=== PATIENT | female | born 1960 | race Caucasian/White ===

== ENCOUNTER 2020-08-29 15:37 | Inpatient (IN) | payer MEDICARE, MEDICAID, SELFPAY ==
[2020-08-29] VITALS (20 sets, daily range): BP systolic 95–143; BP diastolic 65–86; PULSE 100–140; RESP 19–34; TEMP 36.6–38.2; O2SAT 87–97; BMI 68.1
--- NOTE | ~2020-08-29 | XR_ITS ---
EXAMINATION: XR chest 1V portable EXAM DATE: 08/29/2020 16:08 INDICATION: sob covid +,HX CHF,COPD . TECHNIQUE: Portable AP frontal chest x-ray was obtained. Comparison is made to prior examination from 10/09/2016. FINDINGS: Scattered bilateral ill-defined groundglass opacity suspected, new compared to prior study. Given history provided, could be regions of early acute lung injury from SARS-CoV-2. Could also be p ulmonary edema given the cardiomegaly and pulmonary vascular congestion. There is no pneumothorax nir pected. There are no pleural effusions There are bony degenerative changes. IMPRESSION: Scattered groundglass opacities likely either COVID-19 or pulmonary edema. Cardiomegaly, congestion. Reviewed, dictated and finalized at location B. MENTAL IRONWORKER
--- NOTE | ~2020-08-29 | XR_ITS ---
EXAMINATION: XR chest 1V portable EXAM DATE: 09/03/2020 06:13 INDICATION: CHF. Pneumonia. TECHNIQUE: Portable AP frontal chest x-ray was obtained. Comparison is made to prior examination from 08/29/2020. FINDINGS: The cardiac silhouette is enlarged. There is pulmonary vascular congestion. No confluent co nsolidation, pneumothorax or pleural effusion suspected. There are no osseous abnormalities identifie d. IMPRESSION: Cardiomegaly, pulmonary vascular congestion. Reviewed, dictated and finalized at location A. S REPRESENTATIVE TRAINEE
--- NOTE | 2020-08-29 15:42 | ECG_ITS ---
Measurements Intervals [place] Rate: 142 P: UT: 0 QRS: -3 QRSD: 108 T: 139 QT: 324 QTc: 499 Interpretive Statements ATRIAL FIBRILLATION WITH RAPID VENTRICULAR RESPONSE VENTRICULAR PREMATURE COMPLEXES BORDERLINE R WAVE PROGRESSION, ANTERIOR LEADS BORDERLINE ST-T WAVE ABNORMALITY- HIGH LATERAL LEADS BASELINE ARTIFACT- III, AVL, AVF, V1-V3 ABNORMAL ECG Electronically Signed On 08-29-2020 18:48:27 CREATIVE INTERN by Rony Soliman D.O.
--- NOTE | 2020-08-29 15:43 | ED.GENADULT ---
HPI - General Adult General Chief complaint: Shortness of Breath/Dyspnea Stated complaint: SOB/COVID + Time Seen by Provider: 08/29/20 15:40 Source: patient Mode of arrival: EMS Limitations: no limitations History of Present Illness HPI narrative: Patient presents with chief complaint of shortness of breath while at the detention. Patient was diagnosed with COVID on 08/23/2020. Patient states that she is normally on 4-5 L of oxygen via nasal cannula at home due to breathing issues for which diagnoses are unknown to her. Patient states that she was having trouble catching her breath at the detention so they called EMS. They did not try adjusting her nasal cannula or oxygen. Patient has chronic atrial fibrillation. Patient states she has not been drinking very much as the water tastes nasty. Patient denies fever, chills, vomiting, diarrhea. Patient is resting comfortably at this time. Related Data Home Medications Medication Instructions Recorded Confirmed amlodipine 08/29/20 atorvastatin 08/29/20 buspirone mg 08/29/20 carvedilol 08/29/20 diclofenac sodium TOPICAL 08/29/20 empagliflozin [Jardiance] mg 08/29/20 08/29/20 fluconazole 08/29/20 gabapentin 08/29/20 insulin detemir U-100 [Levemir SUBCUT 08/29/20 U-100 Insulin] losartan 08/29/20 metformin mg 08/29/20 trazodone 08/29/20 Allergies Allergy/AdvReac Type Severity Reaction Status Date / Time sulfamethoxazole Allergy Unknown Rash Verified 08/29/20 15:47 trimethoprim Allergy Unknown Rash Verified 08/29/20 15:47 PIPERACILLIN SODIUM Allergy Unknown Rash Uncoded 08/29/20 15:47 TAZOBACTAM SODIUM Allergy Unknown Rash Uncoded 08/29/20 15:47 Review of Systems Review of Systems: Narrative: CONSTITUTIONAL: Denies fever, chills, or sweats. EYES: Denies visual changes, redness, or discharge. ENT: Denies rhinorrhea, congestion, sore throat, or otalgia. CARDIOVASCULAR: Denies chest pain, palpitations, or edema. RESPIRATORY: Reports dyspnea denies cough GASTROINTESTINAL: Denies abdominal pain, nausea, vomiting, or diarrhea. GENITOURINARY: Denies dysuria or hematuria. SKIN: Denies rash or itching. MUSCULOSKELETAL: Denies back pain, joint pain, or myalgia. NEUROLOGIC: Denies headache, numbness, dizziness, or weakness. PSYCHIATRIC: Denies anxiety or depression. [facility] Past Medical History Medical History (Updated 08/29/20 @ 16:08 by Horacio Maurer PA-C) Congestive heart failure COPD (chronic obstructive pulmonary disease) Depression GERD (gastroesophageal reflux disease) Hypercholesterolemia Obesity hypoventilation syndrome Osteoarthritis Panniculitis Surgical History Surgical History (Updated 08/29/20 @ 16:08 by Horacio Maurer PA-C) H/O umbilical hernia repair History of carpal tunnel release Hx of cholecystectomy Exam Narrative: Exam Narrative: GENERAL: Well-appearing, well-nourished, and in no acute distress. Patient sitting in bed watching TV with nasal cannula in place. Patient is morbidly obese HEAD: Normocephalic, atraumatic. EYES: PERRLA and EOMI. ENT: Nares clear, no rhinorrhea or epistaxis. Mucous membranes moist. Bilateral TMs pearly linn nonbulging CHEST: Clear to auscultation.They are not loudly audible wheezes or rhonchi. Patient able to speak in complete sentences without being short of breath. Patient is denying chest pain. No tachypnea. HEART: Irregular regular rate and rhythm- A. fib. EXTREMITIES: Normal range of motion. No edema. SKIN: Warm, dry, no rash. NEURO: No focal deficits. Alert and oriented x3. PSYCH: Normal mood and affect. Course Course Emergency Course: Patient is encouraged to take a deep breath her oxygenation is between 95-96 on room air on her normal 5 L via nasal cannula. Patient is not tachypneic. Patient's heart rate fluctuates between 129 and 160 so she has been started on a Cardizem drip at 5 an hour. Her blood pressure is holding at 128/88. Blood rate continues to be elevated so the Car
[2020-08-29 16:09] LABS: Hematocrit 27.6 % (37.0-47.0); Hemoglobin 8.2 g/dL (12.0-15.0); Mean Corpuscular HGB Conc 29.7 g/dl (32-36); Mean Corpuscular Hemoglobin 25.6 pg (26-34); Mean Corpuscular Volume 86.3 fl (80-100); Mean Platelet Volume 10.2 fl (7.4-10.4); Platelet Count Result 211 k/mm3 (150-375); Red Cell Distribution Width 18.3 % (11.5-14.5); White Blood Count 6.6 K/mm3 (4.5-10.0)
[2020-08-29 16:21] LABS: Alanine Aminotransferase 12 U/L (4-35); Albumin Level 3.6 g/dL (3.5-5.1); Alkaline Phosphatase 65 U/L (38-126); Anion Gap 13 mmol/L (8-16); Aspartate Amino Transferase 16 U/L (14-36); Bilirubin,Total 0.2 mg/dL (0.2-1.3); Blood Urea Nitrogen 64 mg/dL (7-17); Calcium 8.7 mg/dL (8.4-10.2); Carbon Dioxide 36 mmol/L (22-30); Chloride 90 mmol/L (98-107); Estimated CRCL calculation 58 ml/min; Estimated Glomerular Filt Rate 36; Glucose 182 mg/dL (65-105); Potassium 3.6 mmol/L (3.4-5.0); Sodium 139 mmol/L (137-145)
[2020-08-29 16:32] LABS: Anisocytosis 2+ (NORMAL); Band Neutrophils Percent 16 % (0-6); Hypochromasia 1+ (NORMAL); Lymphocytes Absolute Manual 0.46 K/mm3 (1.1-4.5); Monocytes Absolute Manual 0.26 K/mm3 (0.1-0.90); Monocytes Percent Manual 4 % (3-9); Neutrophils Absolute Manual 5.87 K/mm3 (1.7-7.2); Neutrophils Percent Manual 73 % (46-73); Platelet Estimate Adequate (Adequate); Total Cells Counted 100
[2020-08-29 16:36] LABS: D Dimer 2.51 ug/mL (<0.48)
[2020-08-29] MEDS: dilTIAZem HCl INJ 25 MG/5 ML VIAL 15 MG IV PUSH ×2 (16:46→18:21)
[2020-08-29 16:55] LABS: NT Pro B Type Natriuretic Pept 5480 PG/ML (5-100)
[2020-08-29] MEDS: LORazepam INJ (*CRX) 2 MG/ML VIAL 0.5 MG IV PUSH (17:11)
--- NOTE | 2020-08-29 17:20 | PC.NURSE ---
PT REFUSING TO LIE DOWN FOR HER CT SCAN. DR REYES AND Tiarra VELASCO MADE AWARE.
[2020-08-29] MEDS: ENOXAPARIN 100 MG/ML SYRINGE 170 MG SUB-Q (17:59)
--- NOTE | 2020-08-29 21:47 | PM.IMHP ---
H&P: HPI History of Present Illness Date/Time: 08/29/20 21:47 Chief complaint: COVID, Hypoxia, R/O PE, AFIB RVR Narrative: Melissa Gilman is a 60 year old female Who has a history of paroxysmal atrial fibrillation. Is no longer on any anticoagulation for unknown reasons. The patient also has a history of congestive heart failure as well COPD. The patient is typically on oxygen at 4-5 L of oxygen. The patient complained of shortness of breath while in the alf. She was diagnosed with covid 19 on 08/23/2020. The patient was having difficulty catching her breath so EMS was called. Patient was found to be in AFib with RVR. The patient has not been drinking very much because her taste buds have changed. No fever chills no vomiting or diarrhea. The patient is from [facility]. Patient's H&H was noted to be 8.2 and 27.6. This appears to be her baseline. Creatinine is noted to be 1.5 in her blood glucose 182. Patient was given IV fluids and then started on a Cardizem drip. She was also started on subcu Lovenox. Patient also has obstructive sleep apnea and wears a CPAP machine. Patient was admitted inpatient IMU status but place in ICU since she has covid 19. The patient is a very poor historian has not been able to offer much history. Patient is somnolent. Date of service is 08/29/2020. Review of Systems Review of Systems: All systems reviewed & are unremarkable except as noted in HPI and below Constitutional: Constitutional: Reports as per HPI and Reports no additional constitutional complaints Eyes: Eyes: Reports as per HPI and Reports no additional eye complaints ENT: Reports system reviewed and no additional complaints, except as documented and Reports Normal hearing present Cardiovascular: Cardiovascular: Reports no additional cardiovascular complaints Respiratory: Respiratory: Reports no additional respiratory complaints and Reports no additional respiratory complaints Gastrointestinal: Gastrointestinal: Reports as per HPI and Reports no additional gastrointestinal complaints Musculoskeletal: Musculoskeletal: Reports no additional musculoskeletal complaints Integumentary/Breasts: Skin/Breast: Reports system reviewed and no additional complaints, except as docu and Reports as per HPI Neurologic: Reports system reviewed and no additional complaints, except as documented, Reports as per HPI and Reports Normal hearing present Psychiatric: Psychiatric: Reports no additional psychiatric complaints and Reports as per HPI Endocrine: Endocrine: Reports no additional endocrine complaints Hematologic/Lymphatic: Hematologic/Lymphatic: Reports no additional hematologic/lymphatic complaints Allergic/Immunologic: Allergic/Immunologic: Reports no additional allergic/immunologic complaints [facility] Past Medical History Medical History (Updated 08/29/20 @ 22:13 by Isabell Connors NP) Anemia Atrial fibrillation paroxysmal. Patient is no longer on anticoagulation unsure of why the patient is no longer on anticoagulation. Congestive heart failure Diastolic COPD (chronic obstructive pulmonary disease) Depression Depression with anxiety DM2 (diabetes mellitus, type 2) GERD (gastroesophageal reflux disease) Hypercholesterolemia Hypertension Morbid obesity Obesity hypoventilation syndrome Osteoarthritis Panniculitis Surgical History Surgical History (Updated 08/29/20 @ 21:59 by Isabell Connors NP) H/O umbilical hernia repair History of carpal tunnel release History of section, classical History of endometrial ablation Hx of cholecystectomy Family History Family History (Updated 08/29/20 @ 22:00 by Isabell Connors NP) Father Congestive heart failure Prostate carcinoma Mother Mitral valve prolapse Social History Social History (Updated 08/29/20 @ 22:04 by Isabell Connors NP) Social History: the patient resides at [facility] was noted from her social history in the
[2020-08-29 22:03] LABS: Base Excess ABG 5.8 mEq/l (+/-2.0); Fractional Inspired Oxygen 40 %; HCO3 ABG 32.6 mEq/l (22.0-26.0); Oxygen Content ABG 12.1 %vol (16.0-22.0); Oxygen Saturation ABG 87.8 % (95.0-100.0); Oxyhemoglobin 86.9 % THb (90.0-100.0); PCO2 ABG 59.9 mmHg (35.0-45.0); PO2 ABG 57.3 mmHg (80.0-100.0); PO2 FiO2 Ratio Arterial Blood 1.43 %; Total Hemoglobin 9.9 g/dL (12.0-18.0); pH ABG 7.353 (7.350-7.450)
[2020-08-29 22:05] LABS: Device NASAL CANNULA; Modified Allen's Test Pass; Site Drawn RIGHT RADIAL
[2020-08-29] MEDS: REMDESIVIR 200 MG/NS 250 ML 200 MG/250 ML BAG 250 MG IVPB (23:04)
[2020-08-30] VITALS (24 sets, daily range): BP systolic 119–147; BP diastolic 65–97; PULSE 84–124; RESP 21–25; TEMP 35.6–37.8; O2SAT 94–99
--- NOTE | 2020-08-30 | ECHO_ITS ---
Patient Info Name: Melissa Gilman Age: 60 years : 1960 Gender: Female Ht: 63 in Wt: 384 lbs BSA: 2.91 m2 HR: 83 bpm BP: 129 / 97 mmHg Heart Rhythm: Atrial Fibrillation Technical Quality: Fair Exam Date: 08/30/2020 2:11 PM Exam Location: [facility] Pulmonary Patient Status: Inpatient Admit Date: 08/29/2020 Staff Ordering Physician: Isabell Connors NP Developer Relations Manager: Ron Joseph, OLIVIA, RT Attending Provider: Nestor Harry MD Referring Physician: [facility] ; Exam Type: CA echo doppler color flow Study Info Indications I50.9 - Heart failure, unspecified Complete two-dimensional, color flow and Doppler transthoracic echocardiogram is performed. Summary 1. Complete two-dimensional, color flow and Doppler transthoracic echocardiogram is performed. 2. Left ventricular chamber dimension is normal. 3. Left ventricular systolic function is normal, estimated at 55-60%. 4. There is mildly increased left ventricular wall thickness. 5. The left ventricular diastolic function is abnormal. 6. E/e' 11 is mildly elevated. 7. Probably in atrial fibrillation. 8. Right atrial chamber dimension is mildly enlarged. 9. There is mild to moderate mitral valve regurgitation. 10. There is trace pulmonic regurgitation. 11. Dilated inferior vena cava with <50% collapse upon inspiration consistent with significantly elevated right atrial pressure, 15 mmHg. Left Ventricle E/e' 11 is mildly elevated. Probably in atrial fibrillation. Left ventricular chamber dimension is normal. Left ventricular systolic function is normal, estimated at 55-60%. There is mildly increased left ventricular wall thickness. The left ventricular diastolic function is abnormal. Right Ventricle Right ventricular chamber dimension is not well visualized. Left Atria Left atrial chamber dimension is normal. Right Atria Right atrial chamber dimension is mildly enlarged. Aortic Valve The aortic valve is probable trileaflet. There is no aortic valve stenosis. There is no aortic valve regurgitation. Pulmonic Valve There is trace pulmonic regurgitation. Mitral Valve There is no mitral valve stenosis. There is mild to moderate mitral valve regurgitation. Tricuspid Valve There is no tricuspid valve regurgitation. Pericardium/Pleural There is no pericardial effusion. Inferior Vena Cava Dilated inferior vena cava with <50% collapse upon inspiration consistent with significantly elevated right atrial pressure, 15 mmHg. Aorta The aortic root size at the sinus of Valsalva is normal. Tricuspid Valve Name Value Normal Estimated PAP/RSVP RA Pressure 15 mmHg <=5 Report Signatures
[2020-08-30] MEDS: DEXAMETHASONE SOD PHOS INJ 4 MG/ML VIAL 6 MG IV PUSH ×2 (00:50→21:35)
[2020-08-30 01:39] LABS: Glucose Point of Care 165 (65-105)
[2020-08-30 04:58] LABS: D Dimer 2.34 ug/mL (<0.48)
[2020-08-30 05:04] LABS: Alanine Aminotransferase 8 U/L (4-35); Albumin Level 3.5 g/dL (3.5-5.1); Alkaline Phosphatase 68 U/L (38-126); Anion Gap 8 mmol/L (8-16); Aspartate Amino Transferase 17 U/L (14-36); Bilirubin,Total 0.4 mg/dL (0.2-1.3); Blood Urea Nitrogen 62 mg/dL (7-17); Calcium 8.9 mg/dL (8.4-10.2); Carbon Dioxide 38 mmol/L (22-30); Chloride 92 mmol/L (98-107); Estimated CRCL calculation 72 ml/min; Estimated Glomerular Filt Rate 46; Glucose 207 mg/dL (65-105); Lactate Dehydrogenase 465 U/L (313-618); Magnesium 2.6 mg/dL (1.6-2.3); Potassium 3.7 mmol/L (3.4-5.0); Sodium 138 mmol/L (137-145)
[2020-08-30 05:09] LABS: CRP 20.5 mg/dL (<1.0)
[2020-08-30 05:33] LABS: Basophils Percent Auto 0.4 % (0.2-1.2); Eosinophils Percent Auto 0.2 % (0-4.4); Hematocrit 29.8 % (37.0-47.0); Hemoglobin 8.7 g/dL (12.0-15.0); Immature Granulocyte Absolute 0.43 K/mm3 (0.00-0.031); Immature Granulocyte Percent A 7.6 % (0-0.5); Lymphocytes Absolute Auto 0.54 K/mm3 (0.9-3.2); Lymphocytes Percent Auto 9.5 % (18.3-44.2); Mean Corpuscular HGB Conc 29.2 g/dl (32-36); Mean Corpuscular Volume 85.6 fl (80-100); Mean Platelet Volume 10.2 fl (7.4-10.4); Monocytes Absolute Auto 0.3 K/mm3 (0.1-0.6); Monocytes Percent Auto 5.5 % (2.6-8.5); Neutrophils Absolute Auto 4.4 K/mm3 (1.3-6.7); Neutrophils Percent Auto 76.8 % (45.5-73.1); Platelet Count Result 214 k/mm3 (150-375); Red Blood Count 3.48 M/mm3 (4.2-5.4); Red Cell Distribution Width 18.4 % (11.5-14.5); White Blood Count 5.7 K/mm3 (4.5-10.0)
[2020-08-30 05:58] LABS: Hemoglobin A1C 7.5 % (<5.7)
[2020-08-30] MEDS: ENOXAPARIN 100 MG/ML SYRINGE SUB-Q ×2 (06:17→17:18)
[2020-08-30] MEDS: ENOXAPARIN 80 MG/0.8 ML SYRINGE 75 MG SUB-Q ×2 (06:17→17:18)
[2020-08-30] MEDS: ACETAMINOPHEN 500 MG TABLET PO ×3 (06:18→17:17)
[2020-08-30 06:25] LABS: Thyroid Stimulating Hormone Reflex 0.995 uIU/mL (0.465-4.68)
[2020-08-30 06:54] LABS: Microcytosis 2+ (NORMAL); Platelet Estimate Adequate (Adequate)
[2020-08-30 06:55] LABS: Hypochromasia 2+ (NORMAL)
[2020-08-30] MEDS: POLYSACCHARIDE IRON COMPLEX 150 MG CAPSULE PO ×2 (08:44→17:17)
[2020-08-30] MEDS: GABAPENTIN 300 MG CAPSULE PO ×2 (08:45→17:16)
[2020-08-30] MEDS: ATORVASTATIN 40 MG TABLET PO (08:45)
[2020-08-30] MEDS: FUROSEMIDE INJ 40 MG/4 ML VIAL IV PUSH (08:45)
[2020-08-30] MEDS: busPIRone HCL 2.5 MG TABLET 7.5 MG PO ×2 (08:45→21:35)
[2020-08-30] MEDS: PANTOPRAZOLE 40 MG TABLET PO (08:46)
[2020-08-30 09:26] LABS: Glucose Point of Care 183 (65-105)
[2020-08-30 14:11] LABS: Glucose Point of Care 146 (65-105)
[2020-08-30] MEDS: TOLNAFTATE 1% POWDER 45 GM BTL 1 APPLIC TOPICAL (15:03)
--- NOTE | 2020-08-30 16:20 | PM.IMPN ---
Progress Note: A&P Assessment and Plan (1) COVID-19: Code(s): U07.1 - COVID-19 Status: Acute Assessment and Plan: The patient tested has if on August 23 and is from [facility]. Pt is on bipap in ICU. try to wean off BIPAP. (2) Atrial fibrillation: Code(s): I48.91 - Unspecified atrial fibrillation Status: Chronic Assessment and Plan: Wean offcardizem drip. Patient is currently on a Cardizem drip and is responding to the Cardizem. (3) Acute kidney injury: Code(s): N17.9 - Acute kidney failure, unspecified Status: Acute Assessment and Plan: Will continue to monitor. (4) DM2 (diabetes mellitus, type 2): Code(s): E11.9 - Type 2 diabetes mellitus without complications Status: Chronic Assessment and Plan: Accu-Cheks AC and HS check A1c in the morning. Sliding scale insulin. (5) COPD (chronic obstructive pulmonary disease): Code(s): J44.9 - Chronic obstructive pulmonary disease, unspecified Status: Chronic Assessment and Plan: Patient is on dexamethasone (6) Congestive heart failure: Code(s): I50.9 - Heart failure, unspecified Status: Chronic Assessment and Plan: Lasix. (7) Depression: Code(s): F32.9 - Major depressive disorder, single episode, unspecified Status: Chronic (8) Hypercholesterolemia: Code(s): E78.00 - Pure hypercholesterolemia, unspecified Status: Chronic Assessment and Plan: (9) Obesity hypoventilation syndrome: Code(s): E66.2 - Morbid (severe) obesity with alveolar hypoventilation Status: Chronic Assessment and Plan: I ordered a home titrate BiPAP (10) Hypertension: Code(s): I10 - Essential (primary) hypertension Status: Chronic Assessment and Plan: Patient currently is on a Cardizem drip so hold off on any of her blood pressure medicine at this time. (11) Depression with anxiety: Code(s): F41.8 - Other specified anxiety disorders Status: Chronic Assessment and Plan: Awaiting for verification of home medications. (12) Anemia: Code(s): D64.9 - Anemia, unspecified Status: Chronic Assessment and Plan: Appears to be at her baseline. Subjective Date/time seen: 08/30/20 16:20 Interval history: Mukul is a 60 year old female Who has a history of paroxysmal atrial fibrillation. The patient also has a history of congestive heart failure as well COPD. Pt is in ICU for COVID positive infection. PT is from [facility], admitted yesterday. She is currently stable on BIPAP started on remdesivir. Pt is also weaning off a cardizem drip. Review of Systems Review of Systems: All systems reviewed & are unremarkable except as noted in HPI and below Exam Narrative: Exam Narrative: on BIPAP Const: General: cooperative and comfortable Chest: Chest palpation & inspection: normal inspection of the chest Resp: Effort & Inspection: labored Cardio: Rate: tachycardic Rhythm: abnormal rhythm regularly irregular GI: Inspection: normal to inspection Auscultation: normal bowel sounds Skin: General skin exam: normal color Lesions: no lesions Rashes: no rashes Trauma: no lacerations or abrasions Wounds: no wounds Hair: normal Nails: normal Neuro: General: oriented to person Motor exam (neuro): 5/5 motor strength present throughout Extrem: General: edema bilateral Right upper extremity: normal to inspection and shoulder/upper arm Left upper extremity: normal to inspection and shoulder/upper arm Right lower extremity: normal to inspection and edema Details: pitting and 3+ Left lower extremity: normal to inspection and edema Details: pitting and 3+ Psych: Appearance: grossly normal Mental Status: mental status grossly normal Speech and movement: Slowed speech present (Psych) Affect: Indifferent affect present Attit
[2020-08-30] MEDS: INSULIN ASPART (*BKC) 100 UNITS/ML SUB-Q (17:13)
[2020-08-30 17:25] LABS: Glucose Point of Care 290 (65-105)
[2020-08-30] MEDS: REMDESIVIR 100 MG/NS 250 ML 100 MG/250 ML BAG 250 MG IVPB (21:36)
[2020-08-30 22:01] LABS: Glucose Point of Care 296 (65-105)
[2020-08-31] VITALS (14 sets, daily range): BP systolic 134–157; BP diastolic 69–96; PULSE 50–114; RESP 18–23; TEMP 36.1–36.7; O2SAT 92–99
[2020-08-31] MEDS: ACETAMINOPHEN 500 MG TABLET PO ×5 (00:30→23:14)
[2020-08-31] MEDS: carvediloL 6.25 MG TABLET PO ×2 (06:07→21:40)
[2020-08-31] MEDS: ENOXAPARIN 100 MG/ML SYRINGE SUB-Q ×2 (06:08→17:20)
[2020-08-31] MEDS: ENOXAPARIN 80 MG/0.8 ML SYRINGE 75 MG SUB-Q ×2 (06:09→17:21)
[2020-08-31 06:45] LABS: Alanine Aminotransferase 11 U/L (4-35)
[2020-08-31] MEDS: POLYSACCHARIDE IRON COMPLEX 150 MG CAPSULE PO ×2 (08:07→17:20)
[2020-08-31] MEDS: GABAPENTIN 300 MG CAPSULE PO ×2 (08:07→17:20)
[2020-08-31] MEDS: ATORVASTATIN 40 MG TABLET PO (08:07)
[2020-08-31] MEDS: busPIRone HCL 2.5 MG TABLET 7.5 MG PO ×2 (08:07→17:20)
[2020-08-31] MEDS: PANTOPRAZOLE 40 MG TABLET PO (08:07)
[2020-08-31] MEDS: INSULIN ASPART (*BKC) 100 UNITS/ML SUB-Q ×3 (08:08→17:19)
[2020-08-31] MEDS: FUROSEMIDE INJ 40 MG/4 ML VIAL IV PUSH (08:08)
[2020-08-31] MEDS: TOLNAFTATE 1% POWDER 45 GM BTL 1 APPLIC TOPICAL (08:08)
[2020-08-31] MEDS: LORazepam (*CRX) 0.5 MG TABLET PO ×3 (10:59→23:14)
[2020-08-31 11:35] LABS: Glucose Point of Care 259 (65-105)
--- NOTE | 2020-08-31 12:00 | PC.NURSE ---
Patient transferred to [facility], report given to Erin BEAULIEU and all questions answered. All belongings sent with patient
--- NOTE | 2020-08-31 12:01 | ADMGEN ---
This patient, Melissa Gilman, was admitted to [facility] Surg Room 330-01. Patient/family oriented to hospital policies and general routines including ID bracelet, bed and alarms, visiting hours, pain management, procedures, bathroom and other care routines, personal items, smoking policy, room service/diet, and visiting hours. Information on how to activate the Rapid Response Team has been discussed. Patient/Family are encouraged to report perceived risks to care and to ask questions if they do not understand what they are told or what they should do.
[2020-08-31 12:40] LABS: Glucose Point of Care 242 (65-105)
--- NOTE | 2020-08-31 15:26 | PM.IMPN ---
Progress Note: A&P Assessment and Plan (1) COVID-19: Code(s): U07.1 - COVID-19 Status: Acute Assessment and Plan: The patient tested has if on August 23 and is from [facility]. Pt is on 4 liters of oxygen (2) Atrial fibrillation: Code(s): I48.91 - Unspecified atrial fibrillation Status: Chronic Assessment and Plan: Wean offcardizem drip. Patient is currently on a Cardizem drip and is responding to the Cardizem orally and coreg (3) Acute kidney injury: Code(s): N17.9 - Acute kidney failure, unspecified Status: Acute Assessment and Plan: Will continue to monitor. (4) DM2 (diabetes mellitus, type 2): Code(s): E11.9 - Type 2 diabetes mellitus without complications Status: Chronic Assessment and Plan: Accu-Cheks AC and HS check A1c in the morning. Sliding scale insulin. (5) COPD (chronic obstructive pulmonary disease): Code(s): J44.9 - Chronic obstructive pulmonary disease, unspecified Status: Chronic Assessment and Plan: Patient is on dexamethasone (6) Congestive heart failure: Code(s): I50.9 - Heart failure, unspecified Status: Chronic Assessment and Plan: Lasix. (7) Depression: Code(s): F32.9 - Major depressive disorder, single episode, unspecified Status: Chronic (8) Hypercholesterolemia: Code(s): E78.00 - Pure hypercholesterolemia, unspecified Status: Chronic Assessment and Plan: (9) Obesity hypoventilation syndrome: Code(s): E66.2 - Morbid (severe) obesity with alveolar hypoventilation Status: Chronic Assessment and Plan: I ordered a home titrate CPAP (10) Hypertension: Code(s): I10 - Essential (primary) hypertension Status: Chronic Assessment and Plan: Patient currently is on a Cardizem drip so hold off on any of her blood pressure medicine at this time. (11) Depression with anxiety: Code(s): F41.8 - Other specified anxiety disorders Status: Chronic Assessment and Plan: Awaiting for verification of home medications. (12) Anemia: Code(s): D64.9 - Anemia, unspecified Status: Chronic Assessment and Plan: Appears to be at her baseline. Subjective Date/time seen: 08/31/20 15:26 Interval history: Mukul is a 60 year old female Who has a history of paroxysmal atrial fibrillation. The patient also has a history of congestive heart failure as well COPD. Pt is in ICU for COVID positive infection. PT is from [facility], admitted yesterday. She is stable fortransfer to medical floor. Pt is off the cardizem drip. off bipap now on 4 liters now. Hr still high today, pt having a wet cough, seen in the room Review of Systems Review of Systems: All systems reviewed & are unremarkable except as noted in HPI and below Exam Narrative: Exam Narrative: Morbidly obese, wet cough Const: General: cooperative and no acute distress Nutritional Appearance: obese Orientation/consciousness: oriented to person and lethargic Limitations: altered mental status Chest: Chest palpation & inspection: normal inspection of the chest Cardio: Rate: tachycardic Extrem: Right upper extremity: no edema Objective Data Vital Signs Vital Signs: Vital Signs - 24 hr 08/30/20 16:00 08/30/20 18:00 08/30/20 20:00 Temperature 36.0 C L 36.1 C L Pulse Rate 102 H 104 H 124 H Respiratory Rate 25 H 23 H Blood Pressure 147/81 H 140/73 138/69 Pulse Oximetry 94 96 08/30/20 22:00 08/30/20 22:37 08/30/20 22:38 Temperature Pulse Rate 110 H 92 112 H Respiratory Rate 25 H 25 H Blood Pressure Pulse Oximetry 96 96 08/30/20 23:19 08/31/20 00:00 08/31/20 03:01 Temperature Pulse Rate 88 90 91 Respiratory Rate 23 H 18 Blood Pressure 137/96 H Pulse Oximetry 96 98 08/31/20 03:45 08/31/20 03:53 08/31/20 03:56 Temperatur
[2020-08-31] MEDS: dilTIAZem HCL 60 MG TABLET PO ×2 (17:20→23:14)
[2020-08-31 18:33] LABS: Glucose Point of Care 270 (65-105)
[2020-08-31] MEDS: REMDESIVIR 100 MG/NS 250 ML 100 MG/250 ML BAG 250 MG IVPB (21:40)
[2020-08-31] MEDS: DEXAMETHASONE SOD PHOS INJ 4 MG/ML VIAL 6 MG IV PUSH (21:40)
[2020-08-31 22:14] LABS: Glucose Point of Care 339 (65-105)
[2020-08-31] MEDS: INSULIN ASPART (*BKC) 100 UNITS/ML 6 UNITS SUB-Q (22:39)
--- NOTE | 2020-08-31 23:46 | PC.NURSE ---
Patient transferred from ICU 8 via bed.
[2020-09-01] VITALS (11 sets, daily range): BP systolic 133–165; BP diastolic 76–96; PULSE 74–101; RESP 18–24; TEMP 36.1–36.6; O2SAT 92–98
[2020-09-01] MEDS: dilTIAZem HCL 60 MG TABLET PO ×4 (05:51→23:37)
[2020-09-01] MEDS: LORazepam (*CRX) 0.5 MG TABLET PO (05:51)
[2020-09-01] MEDS: ENOXAPARIN 80 MG/0.8 ML SYRINGE 75 MG SUB-Q ×2 (05:51→17:46)
[2020-09-01] MEDS: ACETAMINOPHEN 500 MG TABLET PO ×4 (05:51→23:37)
[2020-09-01] MEDS: ENOXAPARIN 100 MG/ML SYRINGE SUB-Q ×2 (05:52→17:47)
[2020-09-01 06:36] LABS: Basophils Percent Auto 0.5 % (0.2-1.2); Hematocrit 32.3 % (37.0-47.0); Hemoglobin 9.2 g/dL (12.0-15.0); Immature Granulocyte Absolute 0.94 K/mm3 (0.00-0.031); Immature Granulocyte Percent A 15.2 % (0-0.5); Lymphocytes Absolute Auto 0.82 K/mm3 (0.9-3.2); Lymphocytes Percent Auto 13.2 % (18.3-44.2); Mean Corpuscular HGB Conc 28.5 g/dl (32-36); Mean Corpuscular Hemoglobin 24.9 pg (26-34); Mean Corpuscular Volume 87.5 fl (80-100); Mean Platelet Volume 9.9 fl (7.4-10.4); Monocytes Absolute Auto 0.3 K/mm3 (0.1-0.6); Monocytes Percent Auto 5.2 % (2.6-8.5); Neutrophils Absolute Auto 4.1 K/mm3 (1.3-6.7); Neutrophils Percent Auto 65.9 % (45.5-73.1); Platelet Count Result 259 k/mm3 (150-375); Red Blood Count 3.69 M/mm3 (4.2-5.4); Red Cell Distribution Width 18.2 % (11.5-14.5); White Blood Count 6.2 K/mm3 (4.5-10.0)
[2020-09-01 06:50] LABS: Alanine Aminotransferase 14 U/L (4-35); Anion Gap 11 mmol/L (8-16); Blood Urea Nitrogen 68 mg/dL (7-17); Calcium 8.9 mg/dL (8.4-10.2); Carbon Dioxide 39 mmol/L (22-30); Chloride 93 mmol/L (98-107); Estimated CRCL calculation 67 ml/min; Estimated Glomerular Filt Rate 42; Glucose 295 mg/dL (65-105); Potassium 4.2 mmol/L (3.4-5.0); Sodium 143 mmol/L (137-145)
[2020-09-01 09:12] LABS: Glucose Point of Care 245 (65-105)
--- NOTE | 2020-09-01 10:02 | PM.IMPN ---
Progress Note: A&P Assessment and Plan (1) COVID-19: Code(s): U07.1 - COVID-19 Status: Acute Assessment and Plan: The patient tested has if on August 23 and is from [facility]. Pt is on 5 liters of oxygen wich according to her is her home dose. On remdesivir and dexamethasone which should be completed on the this month. High di-dimer on admission, above 2.5 which confers high risk of thrombotic events , she is on a full dose of Lovenox already due to to hypercoagulable state secondary to A.Fib. (2) Atrial fibrillation: Code(s): I48.91 - Unspecified atrial fibrillation Status: Chronic Assessment and Plan: Currently back on sinus rhythm with a normal rate. On PO Cardizem and carvedilol PARTH 2 DS2- VASc score is 3, she is anticoagulated with Lovenox. Echo cardiogram showed: 1. Complete two-dimensional, color flow and Doppler transthoracic echocardiogram is performed. 2. Left ventricular chamber dimension is normal. 3. Left ventricular systolic function is normal, estimated at 55-60%. 4. There is mildly increased left ventricular wall thickness. 5. The left ventricular diastolic function is abnormal. 6. E/e' 11 is mildly elevated. 7. Probably in atrial fibrillation. 8. Right atrial chamber dimension is mildly enlarged. 9. There is mild to moderate mitral valve regurgitation. 10. There is trace pulmonic regurgitation. 11. Dilated inferior vena cava with <50% collapse upon inspiration consistent with significantly elevated right atrial pressure, 15 mmHg. (3) Acute kidney injury: Code(s): N17.9 - Acute kidney failure, unspecified Status: Acute Assessment and Plan: Unclear baseline, stop Lasix since she does not look volume overloaded although her volume status is hard to assess given her body habitus. (4) DM2 (diabetes mellitus, type 2): Code(s): E11.9 - Type 2 diabetes mellitus without complications Status: Chronic Assessment and Plan: Poorly controlled needs more than ISS . Will add long acting and short acting regimen weight based at 0.3 units per KG and continue correctional scale. Latest Hb A1 c is only 7.5 % but her glucose might be uncontrolled due to the dexamethasone. (5) COPD (chronic obstructive pulmonary disease): Code(s): J44.9 - Chronic obstructive pulmonary disease, unspecified Status: Chronic Assessment and Plan: Stable at this time, not wheezing on exam. (6) Congestive heart failure: Code(s): I50.9 - Heart failure, unspecified Status: Chronic Assessment and Plan: Echo results as above, currently she does not look on overt heart failure. Stop Lasix for now given the NORI. (7) Depression with anxiety: Code(s): F41.8 - Other specified anxiety disorders Status: Chronic Assessment and Plan: On BuSpar but still complaining of anxiety. Continue Xanax as needed only for now. (8) Anemia: Code(s): D64.9 - Anemia, unspecified Status: Chronic Assessment and Plan: Normocytic anemia without active bleeding , continue to monitor. (9) Hypertension: Code(s): I10 - Essential (primary) hypertension Status: Chronic Assessment and Plan: Stable at this time. (10) Obesity hypoventilation syndrome: Code(s): E66.2 - Morbid (severe) obesity with alveolar hypoventilation Status: Chronic (11) Hypercholesterolemia: Code(s): E78.00 - Pure hypercholesterolemia, unspecified Status: Chronic Assessment and Plan: Subjective Date/time seen: Not in distress, c/o anxiety, coughing occasionally but no sputum production. 09/01/20 10:02 Review of Systems Review of Systems: All systems reviewed & are unremarkable except as noted in HPI and below Exam Const: General: alert and Physically active Nutr
[2020-09-01] MEDS: busPIRone HCL 2.5 MG TABLET 7.5 MG PO ×2 (10:11→17:50)
[2020-09-01] MEDS: INSULIN ASPART (*BKC) 100 UNITS/ML SUB-Q ×3 (10:11→17:57)
[2020-09-01] MEDS: PANTOPRAZOLE 40 MG TABLET PO (10:11)
[2020-09-01] MEDS: ATORVASTATIN 40 MG TABLET PO (10:12)
[2020-09-01] MEDS: POLYSACCHARIDE IRON COMPLEX 150 MG CAPSULE PO ×2 (10:12→17:47)
[2020-09-01] MEDS: GABAPENTIN 300 MG CAPSULE PO ×2 (10:12→17:49)
[2020-09-01] MEDS: carvediloL 6.25 MG TABLET PO ×2 (10:13→22:01)
[2020-09-01] MEDS: TOLNAFTATE 1% POWDER 45 GM BTL 1 APPLIC TOPICAL (10:13)
[2020-09-01 12:17] LABS: Glucose Point of Care 297 (65-105)
[2020-09-01] MEDS: INSULIN ASPART (*BKC) 100 UNITS/ML 10 UNITS SUB-Q ×2 (12:41→17:58)
[2020-09-01] MEDS: INSULIN GLARGINE (*BKC) 100 UNITS/ML 30 UNITS SUB-Q (12:42)
[2020-09-01] MEDS: LORazepam (*CRX) 1 MG TABLET PO ×3 (12:43→23:37)
[2020-09-01 13:57] LABS: IFOB Positive Control Positive; Immunochemical Fecal Occult Bl Positive (N)
--- NOTE | 2020-09-01 14:13 | ECG_ITS ---
Measurements Intervals [place] Rate: 91 P: OK: 0 QRS: 3 QRSD: 109 T: 112 QT: 384 QTc: 473 Interpretive Statements ATRIAL FIBRILLATION DELAYED PRECORDIAL R/S TRANSITION NONSPECIFIC ST & T-WAVE ABNORMALITY- HIGH LATERAL LEADS BASELINE ARTIFACT- II, III, AVL, AVF, V3 ABNORMAL ECG Electronically Signed On 09-01-2020 18:03:49 ASSISTANT PROPERTY MANAGER by Rony Soliman D.O.
[2020-09-01 18:52] LABS: Glucose Point of Care 246 (65-105)
[2020-09-01] MEDS: REMDESIVIR 100 MG/NS 250 ML 100 MG/250 ML BAG 250 MG IVPB (21:59)
[2020-09-01] MEDS: DEXAMETHASONE SOD PHOS INJ 4 MG/ML VIAL 6 MG IV PUSH (22:00)
[2020-09-01 22:24] LABS: Glucose Point of Care 326 (65-105)
[2020-09-02] VITALS (11 sets, daily range): BP systolic 112–146; BP diastolic 65–91; PULSE 57–109; RESP 18–24; TEMP 36.3–36.9; O2SAT 91–96
[2020-09-02] MEDS: dilTIAZem HCL 60 MG TABLET PO ×4 (05:35→23:07)
[2020-09-02] MEDS: ENOXAPARIN 80 MG/0.8 ML SYRINGE 75 MG SUB-Q ×2 (05:35→16:08)
[2020-09-02] MEDS: ACETAMINOPHEN 500 MG TABLET PO ×4 (05:35→23:07)
[2020-09-02] MEDS: ENOXAPARIN 100 MG/ML SYRINGE SUB-Q ×2 (05:35→16:08)
[2020-09-02 07:39] LABS: Hematocrit 32.6 % (37.0-47.0); Hemoglobin 9.7 g/dL (12.0-15.0); Mean Corpuscular HGB Conc 29.8 g/dl (32-36); Mean Corpuscular Hemoglobin 25.3 pg (26-34); Mean Corpuscular Volume 84.9 fl (80-100); Mean Platelet Volume 10.4 fl (7.4-10.4); Platelet Count Result 206 k/mm3 (150-375); Red Blood Count 3.84 M/mm3 (4.2-5.4); Red Cell Distribution Width 18.5 % (11.5-14.5); White Blood Count 5.4 K/mm3 (4.5-10.0)
[2020-09-02] MEDS: GABAPENTIN 300 MG CAPSULE PO ×2 (08:00→16:04)
[2020-09-02] MEDS: busPIRone HCL 2.5 MG TABLET 7.5 MG PO ×2 (08:00→16:04)
[2020-09-02] MEDS: carvediloL 6.25 MG TABLET PO ×2 (08:00→21:28)
[2020-09-02] MEDS: ATORVASTATIN 40 MG TABLET PO (08:00)
[2020-09-02] MEDS: POLYSACCHARIDE IRON COMPLEX 150 MG CAPSULE PO ×2 (08:02→16:05)
--- NOTE | 2020-09-02 08:03 | PM.IMPN ---
Progress Note: A&P Assessment and Plan (1) COVID-19: Code(s): U07.1 - COVID-19 Status: Acute Assessment and Plan: The patient tested positive on August 23 and is from [facility]. Pt is on 5 liters of oxygen which according to her is her home dose. On remdesivir and dexamethasone which should be completed on the this month. High di-dimer on admission, above 2.5 which confers high risk of thrombotic events , she is on a full dose of Lovenox already due to to hypercoagulable state secondary to A.Fib. (2) Anemia: Code(s): D64.9 - Anemia, unspecified Status: Chronic Assessment and Plan: Normocytic anemia with a positive occult blood in stool. Her hemoglobin remains stable as of yesterday without any visible bleeding ( morning labs pending). I think the benefits from anticoagulation outweighs the risks at this time, as long as her hemoglobin is stable she should continue on anticoagulation given the hypercoagulable state due to atrial fibrillation and COVID 19. If her Hb drops significantly or if there is an emergent need we will have GI see her,otherwise she can consult with them once she finish therapy for COVID 19. (3) Atrial fibrillation: Code(s): I48.91 - Unspecified atrial fibrillation Status: Chronic Assessment and Plan: Still on atrial fibrillation with a normal rate. On PO Cardizem and carvedilol. PARTH 2 DS2- VASc score is 3, she is anticoagulated with Lovenox. Consider consult cardiology once done with treatment fro COVID 19. Echo cardiogram showed: 1. Complete two-dimensional, color flow and Doppler transthoracic echocardiogram is performed. 2. Left ventricular chamber dimension is normal. 3. Left ventricular systolic function is normal, estimated at 55-60%. 4. There is mildly increased left ventricular wall thickness. 5. The left ventricular diastolic function is abnormal. 6. E/e' 11 is mildly elevated. 7. Probably in atrial fibrillation. 8. Right atrial chamber dimension is mildly enlarged. 9. There is mild to moderate mitral valve regurgitation. 10. There is trace pulmonic regurgitation. 11. Dilated inferior vena cava with <50% collapse upon inspiration consistent with significantly elevated right atrial pressure, 15 mmHg. (4) Acute kidney injury: Code(s): N17.9 - Acute kidney failure, unspecified Status: Acute Assessment and Plan: Unclear baseline. Stop Lasix since she does not look volume overloaded although her volume status is hard to assess given her body habitus. (5) DM2 (diabetes mellitus, type 2): Code(s): E11.9 - Type 2 diabetes mellitus without complications Status: Chronic Assessment and Plan: Poorly controlled will need more than ISS. Still not at goal we will increase the lantus to 35 units and aspart to 12 units with meals plus correctional scale. Latest Hb A1 c is only 7.5 % but her glucose might be uncontrolled due to the dexamethasone. (6) COPD (chronic obstructive pulmonary disease): Code(s): J44.9 - Chronic obstructive pulmonary disease, unspecified Status: Chronic Assessment and Plan: Stable at this time, not wheezing on exam. (7) Congestive heart failure: Code(s): I50.9 - Heart failure, unspecified Status: Chronic Assessment and Plan: Echo results as above, currently she does not look on overt heart failure. Stop Lasix for now given the NORI. (8) Depression with anxiety: Code(s): F41.8 - Other specified anxiety disorders Status: Chronic Assessment and Plan: On BuSpar but still complaining of anxiety. Continue Xanax as needed only for now. (9) Hypertension: Code(s): I10 - Essential (primary) hypertension Status: Chronic Assessment and Plan: Stable at this time. (10) Obesity hypoventilation syndrome:
[2020-09-02] MEDS: INSULIN ASPART (*BKC) 100 UNITS/ML SUB-Q ×3 (08:10→16:24)
[2020-09-02] MEDS: INSULIN GLARGINE (*BKC) 100 UNITS/ML 30 UNITS SUB-Q (08:12)
[2020-09-02 08:45] LABS: Anion Gap 9 mmol/L (8-16); Blood Urea Nitrogen 73 mg/dL (7-17); Calcium 8.9 mg/dL (8.4-10.2); Carbon Dioxide 38 mmol/L (22-30); Chloride 93 mmol/L (98-107); Estimated CRCL calculation 98 ml/min; Estimated Glomerular Filt Rate 57; Glucose 309 mg/dL (65-105); Potassium 4.9 mmol/L (3.4-5.0); Sodium 140 mmol/L (137-145)
[2020-09-02 08:56] LABS: Anisocytosis 1+ (NORMAL); Band Neutrophils Percent 12 % (0-6); Basophils Absolute Manual 0.05 K/mm3 (0.0-0.1); Basophils Percent Manual 1 % (0-1); Lymphocytes Absolute Manual 1.08 K/mm3 (1.1-4.5); Macrocytosis 1+ (NORMAL); Monocytes Absolute Manual 0.43 K/mm3 (0.1-0.90); Monocytes Percent Manual 8 % (3-9); Neutrophils Absolute Manual 3.83 K/mm3 (1.7-7.2); Neutrophils Percent Manual 59 % (46-73); Nucleated Red Blood Cells 2 %; Platelet Estimate Adequate (Adequate); Total Cells Counted 100
[2020-09-02 08:57] LABS: Hypochromasia 1+ (NORMAL); Polychromasia 1+ (NORMAL)
[2020-09-02 09:27] LABS: Alanine Aminotransferase 14 U/L (4-35)
[2020-09-02] MEDS: TOLNAFTATE 1% POWDER 45 GM BTL 1 APPLIC TOPICAL (11:05)
[2020-09-02] MEDS: PANTOPRAZOLE 40 MG TABLET PO (11:05)
[2020-09-02] MEDS: INSULIN GLARGINE (*BKC) 100 UNITS/ML 35 UNITS SUB-Q (12:58)
[2020-09-02] MEDS: INSULIN ASPART (*BKC) 100 UNITS/ML 12 UNITS SUB-Q ×2 (13:00→16:25)
[2020-09-02 13:13] LABS: Glucose Point of Care 307 (65-105)
[2020-09-02 13:13] LABS: Glucose Point of Care 289 (65-105)
[2020-09-02 16:23] LABS: Glucose Point of Care 301 (65-105)
[2020-09-02] MEDS: REMDESIVIR 100 MG/NS 250 ML 100 MG/250 ML BAG 250 MG IVPB (21:27)
[2020-09-02] MEDS: DEXAMETHASONE SOD PHOS INJ 4 MG/ML VIAL 6 MG IV PUSH (21:27)
[2020-09-02] MEDS: LORazepam (*CRX) 1 MG TABLET PO (23:14)
[2020-09-03] VITALS (13 sets, daily range): BP systolic 133–159; BP diastolic 75–85; PULSE 62–125; RESP 16–24; TEMP 36.3–37.3; O2SAT 94–98
[2020-09-03 04:51] LABS: Glucose Point of Care 263 (65-105)
[2020-09-03] MEDS: ENOXAPARIN 100 MG/ML SYRINGE SUB-Q ×2 (06:10→16:55)
[2020-09-03] MEDS: ENOXAPARIN 80 MG/0.8 ML SYRINGE 75 MG SUB-Q ×2 (06:10→16:54)
[2020-09-03] MEDS: ACETAMINOPHEN 500 MG TABLET PO ×4 (06:11→23:19)
[2020-09-03] MEDS: dilTIAZem HCL 60 MG TABLET PO ×4 (06:11→23:20)
[2020-09-03 06:26] LABS: Hematocrit 32.1 % (37.0-47.0); Hemoglobin 9.2 g/dL (12.0-15.0); Mean Corpuscular HGB Conc 28.7 g/dl (32-36); Mean Corpuscular Hemoglobin 24.8 pg (26-34); Mean Corpuscular Volume 86.5 fl (80-100); Platelet Count Result 301 k/mm3 (150-375); Red Blood Count 3.71 M/mm3 (4.2-5.4); Red Cell Distribution Width 17.8 % (11.5-14.5); White Blood Count 7.3 K/mm3 (4.5-10.0)
[2020-09-03] MEDS: busPIRone HCL 2.5 MG TABLET 7.5 MG PO (07:57)
[2020-09-03] MEDS: POLYSACCHARIDE IRON COMPLEX 150 MG CAPSULE PO ×2 (07:57→16:52)
[2020-09-03] MEDS: ATORVASTATIN 40 MG TABLET PO (07:57)
[2020-09-03] MEDS: carvediloL 6.25 MG TABLET PO ×2 (07:58→23:20)
[2020-09-03] MEDS: GABAPENTIN 300 MG CAPSULE PO ×2 (07:58→16:51)
[2020-09-03] MEDS: PANTOPRAZOLE 40 MG TABLET PO (07:59)
[2020-09-03] MEDS: INSULIN GLARGINE (*BKC) 100 UNITS/ML 35 UNITS SUB-Q (08:10)
[2020-09-03] MEDS: INSULIN ASPART (*BKC) 100 UNITS/ML SUB-Q ×3 (08:10→17:00)
[2020-09-03] MEDS: INSULIN ASPART (*BKC) 100 UNITS/ML 12 UNITS SUB-Q ×2 (08:10→12:12)
[2020-09-03 08:11] LABS: Anion Gap 8.99999 mmol/L (8-16); Blood Urea Nitrogen 63 mg/dL (7-17); Calcium 8.7 mg/dL (8.4-10.2); Carbon Dioxide > 40 mmol/L (22-30); Chloride 93 mmol/L (98-107); Estimated CRCL calculation 108 ml/min; Estimated Glomerular Filt Rate > 60; Glucose 304 mg/dL (65-105); Potassium 4.7 mmol/L (3.4-5.0); Sodium 142 mmol/L (137-145)
[2020-09-03] MEDS: TOLNAFTATE 1% POWDER 45 GM BTL 1 APPLIC TOPICAL (08:13)
[2020-09-03 09:11] LABS: Band Neutrophils Percent 8 % (0-6); Lymphocytes Absolute Manual 1.67 K/mm3 (1.1-4.5); Monocytes Percent Manual 11 % (3-9); Neutrophils Absolute Manual 4.81 K/mm3 (1.7-7.2); Neutrophils Percent Manual 58 % (46-73); Total Cells Counted 100
[2020-09-03 09:13] LABS: Platelet Estimate Adequate (Adequate); Polychromasia 1+ (NORMAL)
[2020-09-03 09:14] LABS: Hypochromasia 1+ (NORMAL)
[2020-09-03 10:34] LABS: Glucose Point of Care 303 (65-105)
--- NOTE | 2020-09-03 12:24 | PM.IMPN ---
Progress Note: A&P Assessment and Plan (1) COVID-19: Code(s): U07.1 - COVID-19 Status: Acute Assessment and Plan: -supplemental oxygen to keep oxygen saturation greater 90% -completed Remdesivir 09/02, still on dexamethasone -Tylenol for fever greater than 100.4 -full-dose Lovenox b.i.d. for COVID and AFib -GI prophylaxis with Protonix 40 mg -MDI: Albuterol p.r.n. q.6 hours -Incentive spirometer q.2 hours while awake (2) Morbid obesity: Code(s): E66.01 - Morbid (severe) obesity due to excess calories Status: Chronic Assessment and Plan: -continue home CPAP for sleep apnea (3) DM2 (diabetes mellitus, type 2): Code(s): E11.9 - Type 2 diabetes mellitus without complications Status: Chronic Assessment and Plan: -Hyperglycemia with dexamethasone -A1c 7.5 -continue Lantus 35, increasing aspart 15 units from 12 units, continue sliding scale (4) Anemia: Code(s): D64.9 - Anemia, unspecified Status: Chronic (5) Atrial fibrillation: Code(s): I48.91 - Unspecified atrial fibrillation Status: Chronic Assessment and Plan: Heart rate rate controlled. Continue diltiazem and Coreg. Anticoagulation with Lovenox full dose. (6) Congestive heart failure: Code(s): I50.9 - Heart failure, unspecified Status: Chronic Assessment and Plan: Will likely restart Lasix tomorrow, hold for today. labs are stable and she is breathing comfortably. Continue Coreg (7) Elevated BUN: Code(s): R79.9 - Abnormal finding of blood chemistry, unspecified Status: Acute Assessment and Plan: With normal creatinine and elevated BUN likely secondary to steroids dexamethasone. Additional Plan Other chronic conditions -hyperlipidemia: Continue atorvastatin -anxiety/depression: Continue BuSpar Diet: Diabetic DVTppx: lovenox full dose BID GI ppx: protonix Code status: Full code Disposition: Medical floor, home soon if back to baseline O2 Subjective Date/time seen: 09/03/20 12:24 patient examined bedside. She still on 5 L oxygen by nasal cannula. She is doing well with no new complaints. Patient denies fever, chills, nausea, vomiting, diarrhea. She states she is breathing comfortably on 5 L. blood sugars elevated 300s likely from steroids, Hgb A1c 7.5, increasing aspart 15 units a.c.. she has completed course of Remdesivir last night. She has no complaints of melena or bright red blood per rectum today. She is stable today, heart rate stable, no episodes of bloody bowel movements. Review of Systems Review of Systems: All systems reviewed & are unremarkable except as noted in HPI and below Exam Narrative: Exam Narrative: - GENERAL: Morbidly obese woman in no acute distress breathing comfortably on 5 L oxygen. - EYES: EOMI. Anicteric. - HENT: Moist mucous membranes. No scleral icterus. - LUNGS: Clear to auscultation bilaterally, no wheezing, rhonchi, or rales. - CARDIOVASCULAR: Regular rate and rhythm. No murmur. No JVD. - ABDOMEN: Soft, non-tender and non-distended. No palpable masses. - EXTREMITIES: No edema. Peripheral pulses 2+. Non-tender. - NEUROLOGIC: No focal neurological deficits. CN II-XII grossly intact. - PSYCHIATRIC: Awake, Alert and oriented x 3. Appropriate mood and affect. - SKIN: No rashes or lesions. Warm. - LYMPH: No cervical lymphadenopathy. Objective Data Vital Signs Vital Signs: Vital Signs - 24 hr 09/02/20 16:00 09/02/20 20:00 09/02/20 21:28 Temperature 36.6 C 36.9 C Pulse Rate 87 109 H 69 Respiratory Rate 22 H 20 Blood Pressure 137/68 137/76 Pulse Oximetry 96 96 09/02/20 23:17 09/02/20 23:51 09/03/20 00:00 Temperature 36.9 C Pulse Rate 74 80 80 Respiratory Rate 24 H 20 Blood Pressure Pulse Oximetry 96 96 09/03/20 01:32 09/03/20 02:37 09/03/20 03:56 Temperature 36.7 C Pulse Rate 71 125 H Respiratory Rate 23 H 20 Blood Pressure 148/80 H 159/85 H Pulse Oximetry 95 97
[2020-09-03 12:27] LABS: Glucose Point of Care 328 (65-105)
[2020-09-03 12:37] LABS: Glucose Point of Care 325 (65-105)
[2020-09-03] MEDS: LORazepam (*CRX) 1 MG TABLET PO (15:39)
[2020-09-03] MEDS: INSULIN ASPART (*BKC) 100 UNITS/ML 15 UNITS SUB-Q (16:52)
[2020-09-03 16:57] LABS: Glucose Point of Care 325 (65-105)
[2020-09-03 17:17] LABS: Glucose Point of Care 287 (65-105)
[2020-09-03] MEDS: DEXAMETHASONE SOD PHOS INJ 4 MG/ML VIAL 6 MG IV PUSH (23:17)
[2020-09-03] MEDS: busPIRone HCL 2.5 MG, busPIRone HCL 5 MG 7.5 MG PO (23:18)
[2020-09-04] VITALS (7 sets, daily range): BP systolic 130–143; BP diastolic 76–95; PULSE 70–126; RESP 18–22; TEMP 36.6–36.8; O2SAT 97–100
[2020-09-04 01:16] LABS: Glucose Point of Care 221 (65-105)
[2020-09-04] MEDS: ENOXAPARIN 100 MG/ML SYRINGE SUB-Q (05:56)
[2020-09-04] MEDS: ACETAMINOPHEN 500 MG TABLET PO ×2 (05:56→12:32)
[2020-09-04] MEDS: dilTIAZem HCL 60 MG TABLET PO ×2 (05:56→12:32)
[2020-09-04] MEDS: ENOXAPARIN 80 MG/0.8 ML SYRINGE 75 MG SUB-Q (05:57)
[2020-09-04 06:25] LABS: Basophils Absolute Auto 0.1 K/mm3 (0.0-0.1); Basophils Percent Auto 0.9 % (0.2-1.2); Hemoglobin 9.6 g/dL (12.0-15.0); Immature Granulocyte Absolute 0.98 K/mm3 (0.00-0.031); Immature Granulocyte Percent A 12.4 % (0-0.5); Lymphocytes Percent Auto 10.1 % (18.3-44.2); Mean Corpuscular HGB Conc 28.2 g/dl (32-36); Mean Corpuscular Hemoglobin 24.5 pg (26-34); Mean Corpuscular Volume 86.7 fl (80-100); Mean Platelet Volume 9.5 fl (7.4-10.4); Monocytes Absolute Auto 0.3 K/mm3 (0.1-0.6); Monocytes Percent Auto 3.8 % (2.6-8.5); Neutrophils Absolute Auto 5.7 K/mm3 (1.3-6.7); Neutrophils Percent Auto 72.8 % (45.5-73.1); Nucleated Red Blood Cells Perc 0.5 % (0.0-0.2); Platelet Count Result 288 k/mm3 (150-375); Red Blood Count 3.92 M/mm3 (4.2-5.4); Red Cell Distribution Width 18.4 % (11.5-14.5); White Blood Count 7.9 K/mm3 (4.5-10.0)
[2020-09-04 06:28] LABS: Anion Gap 3.99999 mmol/L (8-16); Blood Urea Nitrogen 51 mg/dL (7-17); Calcium 9.1 mg/dL (8.4-10.2); Carbon Dioxide > 40 mmol/L (22-30); Chloride 96 mmol/L (98-107); Estimated CRCL calculation 109 ml/min; Estimated Glomerular Filt Rate > 60; Glucose 315 mg/dL (65-105); Potassium 4.6 mmol/L (3.4-5.0); Sodium 140 mmol/L (137-145)
[2020-09-04 07:11] LABS: Platelet Estimate Adequate (Adequate)
[2020-09-04 07:12] LABS: Anisocytosis 1+ (NORMAL); Hypochromasia 1+ (NORMAL); Polychromasia 1+ (NORMAL)
[2020-09-04] MEDS: POLYSACCHARIDE IRON COMPLEX 150 MG CAPSULE PO (07:59)
[2020-09-04] MEDS: ATORVASTATIN 40 MG TABLET PO (08:00)
[2020-09-04] MEDS: busPIRone HCL 2.5 MG, busPIRone HCL 5 MG 7.5 MG PO (08:00)
[2020-09-04] MEDS: GABAPENTIN 300 MG CAPSULE PO (08:01)
[2020-09-04] MEDS: PANTOPRAZOLE 40 MG TABLET PO (08:02)
[2020-09-04] MEDS: TOLNAFTATE 1% POWDER 45 GM BTL 1 APPLIC TOPICAL (08:04)
[2020-09-04] MEDS: carvediloL 6.25 MG TABLET PO (08:04)
[2020-09-04] MEDS: INSULIN GLARGINE (*BKC) 100 UNITS/ML 35 UNITS SUB-Q (08:05)
[2020-09-04] MEDS: INSULIN ASPART (*BKC) 100 UNITS/ML 15 UNITS SUB-Q ×3 (08:11→12:33)
[2020-09-04] MEDS: INSULIN ASPART (*BKC) 100 UNITS/ML SUB-Q (08:16)
[2020-09-04 08:36] LABS: Glucose Point of Care 272 (65-105)
--- NOTE | 2020-09-04 12:10 | PCOTNOTE ---
On 09/04/20, the student, Lacie Oglesby, provided care and completed [facility] documentation on this patient. I have reviewed the student's documentation and agree with the findings.
[2020-09-04 13:12] LABS: Glucose Point of Care > 500 (65-105)
[2020-09-04 13:12] LABS: Glucose Point of Care > 500 (65-105)
[2020-09-04 13:42] LABS: Glucose Point of Care > 500 (65-105)
--- NOTE | 2020-09-04 13:53 | PC.NURSE ---
Addendum entered by Sosa Villatoro RN 09/04/20 15:10: notified that patient's blood sugar is 588 after the 30 units of Novolog insulin. requesting q1h acuchecks. This RN informed that it is against the departments policy to perform q1h acuchecks, the patient would need to be transferred to a higher level of care. states he will check on patient and to just monitor patient for now. Dada nurse senior corporate strategy manager notified of patient's status. material control supervisor notified. ICU director made aware of patient status. Original Note: requesting q1h acuchecks. This RN informed that it is against the departments policy to perform q1h acuchecks. states he will check on patient and to just monitor patient for now. Dada nurse senior corporate strategy manager notified of patient's status
--- NOTE | 2020-09-04 14:00 | PC.NURSE ---
This RN called Dr. Diaz to request a stat BNP order for patient. Notified of Patient's heart rate sustaining in the 140s. Per , ok to order stat BNP. MD will come to floor to see patient. No other new orders at this time.
--- NOTE | 2020-09-04 15:12 | PC.NURSE ---
1408 patient's heart rate noted to drop to 48 on the monitor. This RN and Dada RN to bedside. Patient noted to have agonal respirations, no pulse noted. 1410 Compressions initiated, eloisa alanis called overhead.
--- NOTE | 2020-09-04 16:19 | PDCODEBLUE ---
Milan Alanis Note Milan Alanis Note Time Arrived at Code Gian: 1410 milan alanis called. I arrived 1414. Initial Rhythm on Arrival: PEA Airway Management: Pt being bagged on arrival Chest Compressions: In process on arrival to bedside Result of Milan Alanis: Pt regained consciousness Milan Alanis Summary: Around noon patient was hyperglycemic and received 30u insulin aspart. 1400 she developed tachycardia afib with rate 120-140s which she had been doing. Then around 1410 her heart rate dropped to 60s and then when nurses checked on her, she was found unresponsive. Milan alanis was called and CPR was started with chest compressions and supplemental O2 by bag valve mask. ICU team arrived to scene and hospitalist. Patient underwent CPR, 2 rounds of epi and 2 round of bicarb. She was in PEA arrest and she had ROSC after about 10 minutes of CPR. She then went back into PEA arrest and nursing staff had contacted who announced she is DNR. CPR was stopped abruptly and she was found to have agonal spontaneous breathing. She was then transitioned to comfort care measures.
--- NOTE | 2020-09-04 16:20 | P.DN_ITS ---
Discharge Sum: Prov Provider Primary care physician: Eryn Beck MD Admitting provider: Nestor Harry MD Attending physician on admission: Nestor Harry Pronouncing clinician: Karyn Diaz Discharge Sum: Diag Contributing Factors (1) COVID-19: (2) Morbid obesity: (3) DM2 (diabetes mellitus, type 2): (4) Anemia: (5) Atrial fibrillation: (6) Congestive heart failure: (7) Elevated BUN: Discharge Sum: Summary Date and Time Date of admission: 08/29/20 17:42 Date of : 09/04/20 Time of : 14:35 Summary Details: Patient is a 60 y/o female longterm patient with PMHx paroxysmal atrial fibrillation, Congestive heart failure, COPD on 4-5 L of oxygen. he she had been living in a longterm for last months. she was diagnosed with COVID-19 08/23/2020. developed progressive dyspnea and was admitted on 08/29/2020. she is found to be in AFib with RVR treated with Cardizem drip and subsequently weaned to p.o. Cardizem q.6 hours. She was started on COVID-19 treatment completing Remdesivir and continuing dexamethasone. Blood sugars have been slowly rising with steroids With increasing amounts of insulin. she has obstructive sleep apnea treated with CPAP. She was clinically improving and was weaned down to her 5 L home oxygen level. She was on full-dose Lovenox for anti coagulation for the AFib as well as COVID-19. She did have a positive occult blood in stool however benefits of anticoagulation outweighed risks of bleed. She had no gross bloody blowe movements. echocardiogram showed normal left ventricular systolic function, EF 55-60%. She had some left ventricular diastolic dysfunction. Hemoglobin A1c was 7.5. she has been slowly improving and was on baseline, was planned to be discharged in a few days as she is on day 11 from diagnosis and was back to baseline oxygen. on 09/04/2020 she became hyperglycemic in 500s, she received aspart 30 units, 2 hours later she developed AFib as she had been doing the entire admission going up to the 120s to 140s. And then abruptly around 1410 her heart rate dropped to 60 and when nurses checked on her she was found to be unresponsive, code blue called, CPR was started and supplemental O2 by bag valve mask. During Code Blue she had PEA arrest, egg processing supervisor arrived to scene to run the Code blue, she was treated with 2 rounds of epinephrine, 2 rounds of bicarb. She had Rosc and then subsequent PEA arrest reinitiating CPR. nursing staff called who stated patient is DNR. There was a mixup in her code status as the longterm paperwork showed full code while she also has an Advance directive stating DNR. Once we were informed patient is DNR, code blue was stopped. Patient had agonal breathing was transitioned to comfort care measures. Time of 1435 on 09/04/2020. Family talked to commercial baking teacher who all arrived outside of patient's room. I discussed case with and daughter and answered her questions. Multiple Effect Evaporator Operator to provide grief counseling. Additional Data Confirmation of as documented by pronouncing clinician: no pulse, no respirations, no heart sounds and pupils fixed and dilated Family: at bedside Additional persons at bedside: commercial baking teacher Attending/PCP notified?: No Attending physician: Vikas Diaz DO Was code activated?: Yes Autopsy requested?: No Advance directives: Yes (DNR) Hospice patient?: No
== END 2020-09-04 17:45 | disposition expired | DRG 178 ==
LOC: ANHED 18:43 → ANHICU 21:31 → ANH3MEDSUR 08-31 21:56 → ANHICU 09-05 13:34
PROVIDERS: Family Medicine; Hospitalist; Nurse Practitioner; Physician Assistant; Admitting Provider Internal Medicine; Emergency Provider Family Medicine; PCP Family Medicine; Visit Provider Student in an Organized Health Care Education/Training Program
DX: U07.1 COVID-19 (principal); Z68.45 Body mass index [BMI] 70 or greater, adult; I48.20 Chronic atrial fibrillation, unspecified; N17.9 Acute kidney failure, unspecified; E66.2 Morbid (severe) obesity with alveolar hypoventilation; I50.32 Chronic diastolic (congestive) heart failure; J44.9 Chronic obstructive pulmonary disease, unspecified; I11.9 Hypertensive heart disease without heart failure; I46.9 Cardiac arrest, cause unspecified; R00.0 Tachycardia, unspecified; M19.90 Unspecified osteoarthritis, unspecified site; E11.65 Type 2 diabetes mellitus with hyperglycemia; F41.8 Other specified anxiety disorders; D64.9 Anemia, unspecified; Z66 Do not resuscitate; Z90.49 Acquired absence of other specified parts of digestive tract; Z99.81 Dependence on supplemental oxygen
CPT/HCPCS: 36415; 36600; 71045; 80048; 80053; 82274; 82728; 82805; 83036; 83615; 83735; 83880; 84443; 84460; 85025; 85380; 86140; 87086; 92950; 93005; 93306; 94002; 94003; 96374; 96375; 97161; 97165; 99285; A9270; J1100; J1650; J1815; J1940; J2060